=== PATIENT | female | born 2005 | race Two or more races ===

== ENCOUNTER 2025-05-16 01:19 | Emergency (ER) | payer MEDICAID, SELFPAY ==
[2025-05-16 01:22] VITALS: BP 134/78; PULSE 90; RESP 16; TEMP 36.9; O2SAT 96
[2025-05-16 01:23] VITALS: BMI 28.9
[2025-05-16 01:40] VITALS: PULSE 120; RESP 15; O2SAT 99
[2025-05-16 02:06] VITALS: BP 116/57; PULSE 99; RESP 18; TEMP 37.3; O2SAT 98
--- NOTE | 2025-05-16 02:23 | PD.EDSKIN ---
ED Skin Abcess FB-RME/HPI General Chief complaint: Skin/Abscess/Foreign Body Stated complaint: BUG BITE Time Seen by Provider: 05/16/25 02:18 Arrival date/time: 05/16/25 01:19 RME / HPI RME / HPI narrative: DR GUO MAIN ED EVALUATION: 19 y/ female LETI with father presents to ED c/o burning and itching to the left leg s/p insect bite x yesterday afternoon. Patient denies fever, chills, sweats, headache or any other associated symptoms or aggravating factors. No modifying factors, no radiation, no migration. Related Data Previous Rx's ?Medication ?Instructions ?Recorded sulfamethoxazole 800 1 tab PO BID #14 tabs 05/16/25 mg-trimethoprim 160 mg tablet (Bactrim DS) Allergies Allergy/AdvReac Type Severity Reaction Status Date / Time No Known Allergies Allergy Verified 05/16/25 01:43 Review of Systems Review of Systems Systems Reviewed: All systems reviewed, normal except as documented ED Exam Narrative Physical exam: GENERAL APPEARANCE: alert and oriented x 4, well-developed, well-nourished, no acute distress VITALS: All vitals were reviewed and the pulse ox is 98% on room air, which is normal according to my interpretation. HEENT: Normocephalic, atraumatic; pupils equal, round, reactive to light; EOMI; mucous membranes pink, moist; oropharynx clear NECK: Supple LUNGS: CTABL; no wheezes, no rales, no rhonchi HEART: Regular rate, regular rhythm; normal S1, S2; no murmurs ABDOMEN: non distended; normal BS; soft, no tenderness, no guarding, no rebound; no masses, no organomegaly, no hernia BACK: no CVA tenderness EXTREMITIES: atraumatic; no edema NEUROLOGIC: awake; alert and oriented x4; cranial nerves II-XII grossly intact; no focal sensory or motor deficits PSYCHIATRIC: appropriate mood and affect SKIN: warm, dry, tiny punctate lesion with surrounding erythema, tenderness, no fluctuance Course Quality Measures none Orders Category Date Time Status Trimethoprim/Sulfa 160/800 Ds [Bactrim Ds] Med 05/16/25 02:21 Once 1 tab PO X1 ONE Vital Signs Vital signs: Vital Signs Temperature 98.4 F 05/16/25 01:22 Pulse Rate 90 05/16/25 01:22 Respiratory Rate 16 05/16/25 01:22 Blood Pressure 134/78 H 05/16/25 01:22 Pulse Oximetry (%) 96 05/16/25 01:22 Oxygen Delivery Method Room Air 05/16/25 01:22 Skin / Abscess / Foreign Body MDM Narrative MDM Narrative:: Scribe Attestation: I, Aida Carlson, am scribing for and in the presence of Dr. Guo. Provider Notation: Although this document has been carefully reviewed, there may still be some phonetic and other typographical errors. These errors are purely grammatical due to imperfections in the software program and should not be construed in any way to compromise the substance of the patient's medical care during this visit. Patient data External records reviewed:: [facility] previous records (No prior ED records available for review.) and EMS form Clinical information provided by:: patient Social determinants that could affect healthcare access:: none Patient has the following chronic illnesses:: None reported. How is presenting disease/condition affected by chronic disease/condition?: no chronic disease Evaluation data The following diagnostics were reviewed and interpreted by me:: other (specify) (N/A) Lab and/or radiology exams considered but not ordered:: None Interpretation Summary: N/A Medications / Prescriptions Medications or Prescriptions considered but not ordered:: None Medication administrations:: Medication Administration History Trimethoprim/Sulfamethoxazole (Trimethoprim/Sulfa 160/800 Ds Tablet) 1 tab PO X1 ONE Stop: 05/16/25 02:22 See above if any. Consultations Consultation(s) initiated? (list below): No Diagnosis Skin/Abscess Differential Diagnosis: abscess of skin or subcutaneous tissue, viral exanthem, dermatophytosis, urticaria, herpes zoster, allergic reaction to drug, cellulitis, insect bites and contact dermatitis Most likely diagnosis given after review of the tests above:: Cellulitis Admission Indicated Admission indicated?: not indicated Explain why admission is indicated or not indicated:: Patient does not meet admission criteria. Admission Request Was there a request for admission?: No Disposition Plan Disposition Plan: Discharge Discharge Attestation Discharge Attestation: The patient and all family members were given an opportunity to ask questions and understood the discharge instructions. Discharge instructions specifically effects, indications for sooner follow up or return to the emergency department, and the expected course of current diagnosis. Patient condition: Stable Discharge Plan Plan Patient Disposition: HOME (Self Care) Prescriptions/Referrals Prescriptions/Med Rec: New sulfamethoxazole-trimethoprim [Bactrim DS] 800-160 mg tablet 1 tab PO BID Qty: 14 0RF Problem List Clinical Impression: Cellulitis, Insect bite Patient/Caregiver Discharge Instructions Education Materials: ED Cellulitis, ED Insect Sting/Bite, Infected Print Language: Azeri Stand Alone Forms: Susannah Award Info., Patient Portal Info Letter
[2025-05-16] MEDS: TRIMETHOPRIM/SULFA 160/800 DS TABLET 1 TAB PO (03:06)
[2025-05-16] MEDS: IBUPROFEN TAB 400 MG TABLET PO (03:06)
[2025-05-16] MEDS: lorataDINE 10 MG TABLET PO (03:06)
== END 2025-05-16 03:09 | disposition home or self-care (01) ==
LOC: SERX 06:03
PROVIDERS: Emergency Provider Emergency Medicine
DX: S80.862A Insect bite (nonvenomous), left lower leg, initial encounter (principal); W57.XXXA Bitten or stung by nonvenomous insect and other nonvenomous arthropods, initial encounter; L03.116 Cellulitis of left lower limb
CPT/HCPCS: 99282; A9270